=== PATIENT | male | born 1995 | race Caucasian/White ===

== ENCOUNTER 2018-08-08 21:37 | Emergency (ER) | payer SELFPAY, OTHER ==
[2018-08-08] MEDS: LORAZEPAM 2 MG INJ IM (22:49)
== END 2018-08-08 23:13 | disposition home or self-care (01) ==
LOC: E/R 21:37
DX: F41.9 Anxiety disorder, unspecified (principal); F17.210 Nicotine dependence, cigarettes, uncomplicated
CPT/HCPCS: 71045; 93005; 96372; 99284-25